=== PATIENT | male | born 1950 | race Caucasian/White ===

== ENCOUNTER 2016-10-07 10:00 | Inpatient (IN) | payer BC, MEDICARE ==
[~2016-10-07] VITALS: Ht 188 cm; Wt 93.0 kg
--- NOTE | ~2016-10-07 | PN ---
Unit #: [id number] #: [id number] Patient: SUDHAKAR RIDER [id number] [facility] [address] [place] [address] [id number] I MR#: [id number] NAME: SUDHAKAR RIDER. ROOM: P209 Age: 66 Sex: M Admission Date: 10/07/2016 : 1950 Attending Physician: Fabricio Roberts M.D. Admitting Physician: Fabricio Roberts M.D. Primary Care Physician: Generic Doctor Not In System [facility] PROGRESS NOTES DATE OF SERVICE: 10/10/2016 DISCUSSION Mr. Sudhakar Malone is a 66-year-old male, seen on 10/10/2016. The patient was admitted after suicide attempt and history of alcohol abuse. The patient is participating in program. Mood, sad and dysphoric. Flat affect. Reported that he had a good family session. The patient attended all the group, cooperative. Vital signs; stable, temperature 98.6, pulse 63, and blood pressure 162/95. REVIEW OF SYSTEMS Complete review of systems unremarkable. MENTAL STATUS EXAMINATION General appearance; the patient dressed casually. Attention span and concentration, fair. Oriented in time, place, and person. Mood and affect, sad and dysphoric. Speech, monotone. Thought process, concrete. The patient denied any thoughts of harming self or others. Recent and remote memory, poor. Insight and judgment, poor. DIAGNOSES Major depressive disorder, recurrent, severe. Alcohol use disorder, severe. ASSESSMENT AND PLAN Advised to continue with current medication and therapeutic protocol if needed, consider further adjustment of medication. Dictated by... Sheldon Man/gilma TD: 10/12/2016 03:17 JOB #: [id number] Unit #: [id number] #: [id number] Patient: SUDHAKAR RIDER [facility] PROGRESS NOTES Page 1 of 1 X Fabricio Roberts MD PROGRESS NOTE
--- NOTE | ~2016-10-07 | PN ---
Unit #: [id number] #: [id number] Patient: SUDHAKAR RIDER [id number] [facility] [address] [place] [address] [id number] MR#: [id number] NAME: SUDHAKAR RIDER. ROOM: P209 Age: 66 Sex: M Admission Date: 10/07/2016 : 1950 Attending Physician: Fabricio Roberts M.D. Admitting Physician: Fabricio Roberts M.D. Primary Care Physician: Generic Doctor Not In System [facility] PROGRESS NOTES DATE OF SERVICE 10/09/2016 DISCUSSION Sudhakar is a 66-year-old male seen on 10/09/2016. The patient interviewed, chart reviewed. Obtained information from nursing staff. The patient compliant, cooperative. Mood was labile. The patient withdrawn, isolative, flat affect. Sad, dysphoric mood. The patient denied any complaint, seclusive. The patient's Vital Signs: 97.4, 78, 18, blood pressure 117/73. Complete Review of Systems: Unremarkable. MENTAL STATUS EXAMINATION General Appearance: The patient dressed casually. Attention span, concentration: Fair. Oriented in time, place, and person. Mood and affect: Sad, dysphoric. Speech: Monotone. Thought process: [place]. The patient denied any thoughts of harming self or others but sad, depressed, seclusive. Denied any hallucination. Recent and remote memory: Poor. Insight and judgment: Poor. DIAGNOSES 1. Mood disorder not otherwise specified. 2. Alcohol use disorder, severe. ASSESSMENT/PLAN Advised to continue with current medication and therapeutic protocol. If needed, consider further adjustment of medication. Dictated by... Sheldon Man/chuck TD: 10/11/2016 10:24 JOB #: [id number] Unit #: [id number] #: [id number] Patient: SUDHAKAR RIDER PROGRESS NOTES Page 1 of 1 X Fabricio Roberts MD PROGRESS NOTE
--- NOTE | ~2016-10-07 | HP ---
Unit #: [id number] #: [id number] Patient: BRITTNI RIDER [id number] [place] [address] [id number] MR#: [id number] NAME: BRITTNI RIDER. ROOM: P209 Age: 66 Sex: M Admission Date: 10/07/2016 : 1950 Attending Physician: Fabricio Roberts M.D. Admitting Physician: Fabricio Roberts M.D. Primary Care Physician: Generic Doctor Not In System HISTORY AND PHYSICAL HISTORY OF PRESENT ILLNESS The patient is a 66-year-old male admitted to [address] [place] [address] on 10/07/2016 for suicidal ideations. PAST MEDICAL HISTORY 1. Hypertension. 2. Gout. 3. Hyperlipidemia. 4. History of an IL. PAST SURGICAL HISTORY 1. Cataract. 2. Left detached retinal repair. 3. Right foot. ALLERGIES No known drug allergies. SOCIAL HISTORY He is retired. He lives with his but they are currently . He drinks about 750 ml of vodka per day. FAMILY HISTORY Noncontributory. REVIEW OF SYSTEMS CONSTITUTIONAL: No fever or chills. HEENT: Denies any sore throat, ear pain or runny nose. CARDIOVASCULAR: Denies chest pain, irregular heart rhythm or palpitations. CHEST: Denies shortness of breath or cough. No hemoptysis. GASTROINTESTINAL: Denies nausea, vomiting, diarrhea or chronic constipation. ENDOCRINE: Denies history of increased thirst or urination. No recent significant weight loss or gain. GENITOURINARY: Denies dysuria, frequency, or hematuria. SKIN: Denies any rashes. HEMATOLOGIC: Denies history of increased bleeding or bruising. MUSCULOSKELETAL: Denies any hot, swollen joints. No generalized muscle pain. NEUROLOGIC: Denies problems with vision or speech. No frequent, severe headaches. No numbness, tingling or weakness in any extremities. Denies loss of bladder or bowel control. Unit #: [id number] #: [id number] Patient: BRITTNI RIDER CURRENT MEDICATIONS 1. Doxycycline. 2. Allopurinol. 3. Vytorin. 4. Clonidine. 5. Alfuzosin. 6. Atenolol. PHYSICAL EXAMINATION GENERAL: He is awake, alert, oriented, in no acute distress. VITAL SIGNS: Temperature 98.7, heart rate 78, respirations 18, blood pressure 127/76. HEIGHT: 6 feet 2. WEIGHT: 205 pounds. SKIN: Warm and dry without rash or lesion. HEENT: Normocephalic. TMs not viewed. Oral and nasal passages clear. Conjunctivae clear. PERRLA. EOMs intact. NECK: Supple without lymphadenopathy or thyromegaly. HEART: Regular rate and rhythm without murmur. LUNGS: Clear. ABDOMEN: Soft, nontender. : Not done. EXTREMITIES: No evidence of cyanosis, clubbing or edema. Moves all without focal deficit. NEUROLOGICAL: Grossly within normal limits. Cranial Nerves: II: Visual alcantara are intact. III, IV AND : Extraocular movements are intact. Pupils are equal, round and reactive to light. V: Facial sensation is grossly normal. VII: Facial movements and expression are normal. VIII: Auditory acuity grossly intact. IX, X: Uvula is midline. Phonation is normal. XI: Patient shrugs shoulders and turns head normally. XII: Tongue protrudes in the midline. Sensory and Motor Function: Sensory and motor sensation is grossly normal. Motor: moves all extremities well. Coordination: Gait is normal. Deep Tendon Reflexes: Intact. IMPRESSION 1. Psychiatric admission. 2. Hypertension. 3. Gout. 4. Hyperlipidemia. 5. History of IL. RECOMMENDATIONS PSYCHIATRIC: Per psychiatrist. MEDICAL: No contraindication to participate in facility's activities. MEDICAL PROGNOSIS Good. MEDICAL CONDITION Stable. Dictated by... Unit #: [id number] #: [id number] Patient: BRITTNI RIDER A.P.R.N. EF/leah TD: 10/08/2016 15:11 JOB #: [id number] HISTORY AND PHYSICAL Page 1 of 1 X LEONEL GARZON APRN HISTORY AND PHYSICAL
--- NOTE | ~2016-10-07 | PA ---
Unit #: [id number] #: [id number] Patient: SUDHAKAR RIDER [id number] [place] [address] [id number] I MR#: [id number] NAME: SUDHAKAR RIDER. ROOM: P209 Age: 66 Sex: M Admission Date: 10/07/2016 : 1950 Date of Assessment: 10/08/2016 Attending Physician: Fabricio Roberts M.D. Admitting Physician: Fabricio Roberts M.D. Primary Care Physician: Generic Doctor Not In System PSYCHIATRIC ASSESSMENT INFORMANTS The patient's reliability, fair; chart reliability, good. CHIEF COMPLAINT Depression and alcohol abuse. HISTORY OF PRESENT ILLNESS Mr. Sudhakar Malone is a 66-year-old male, presented with the above-mentioned complaint. The patient was initially admitted at [facility] after he attempted suicide by taking his medication and drank three-quarters of pint of vodka. The patient reported he has been drinking 750 mL of vodka per day from the last 20 years. The patient reported sad, depressed, anxious. Reported he was in a relationship with a girl and caused marital problems, trying to break up after that feeling guilty, sad, depressed, and attempted suicide by taking overdose of medication and alcohol. The patient sad, depressed, passive SI, hopelessness, worthlessness, anxiety, trouble sleeping. Needing inpatient admission at this time for psychiatric stabilization. PAST PSYCHIATRIC HISTORY Unknown for any history of any previous treatment. FAMILY HISTORY AND SOCIAL HISTORY The patient has a good support system from his . No known history of any abuse or any legal problems. History of alcohol abuse on paternal side of the family. MEDICAL HISTORY Remarkable for history of gout and hypertension. MEDICATION HISTORY The patient is on allopurinol, atenolol, Ventolin, clonidine. ALLERGIES No known drug allergies. SUBSTANCE ABUSE HISTORY The patient reported using alcohol 750 mL of vodka a day from the last 20 years. Denied any use of any street drugs or IV drugs. REVIEW OF SYSTEMS HEENT: Eyes, clear. Ears, nose, mouth, and throat; clear. CARDIOVASCULAR: Unremarkable. Unit #: [id number] #: [id number] Patient: SUDHAKAR RIDER RESPIRATORY: Unremarkable. GI: Unremarkable. : Unremarkable. SKIN: Unremarkable. LYMPH NODE: Unremarkable. NEUROLOGIC: Unremarkable. ENDOCRINE: Unremarkable. HEMATOLOGIC: Unremarkable. ALLERGIC/IMMUNOLOGIC: Unremarkable. MUSCULOSKELETAL: Muscle strength and tone, no atrophy or abnormal movement. Gait normal. MENTAL STATUS EXAMINATION CONSTITUTIONAL: Measurement of vital signs; temperature 98.7, pulse 78, respirations 18, blood pressure 126/76. Height 6 feet 2 inches, weight 205 pounds. GENERAL APPEARANCE: The patient dressed casually. The patient did not show any facial deformity. MUSCULOSKELETAL: Please see above. PSYCHIATRIC EXAMINATION Description of speech; regular rate, normal volume, normal articulation, coherent. Description of thought process, goal directed. Description of association, intact. Description of abnormal psychotic thinking; the patient denied any hallucination or delusions, but mood lability, sad, depressed, alcohol abuse. Description of the patient's judgment; concerning everyday activity, poor. Social situation, poor. Concerning psychiatric condition, poor. Complete mental status examination; oriented in time, place, and person. Recent and remote memory, fair. Attention span and concentration, fair. Language, able to name object and repeat phrases. Fund of knowledge, aware of current event and passive vocabulary intact. Mood and affect, sad and dysphoric. Insight and judgment, fair to poor. ASSETS AND LIABILITIES Assets; the patient articulate, able to take care of his ADL. Liability; history of depression, alcohol abuse. ADMITTING DIAGNOSES Psychiatric: Major depressive disorder, recurrent, severe, F33.2; alcohol use disorder, severe, F10.20. Secondary diagnosis: Deferred. Medical diagnoses: Hypertension and gout. Stressors: Psychosocial stressor. PSYCHIATRIC PLAN AND TREATMENT GOAL 1. Advised to admit the patient on the inpatient unit. Provide safe, supportive, and structured environment. 2. Ordered labs; CBC, CMP, UA, and UDS. 3. Obtained information from the [facility] and [facility]. 4. The patient to start with detox protocol, detox monitoring. Attend all the programming with group therapy, individual therapy, chemical dependency group. Advised to continue with home medication and if needed, consider further adjustment of medication. Advised Celexa 20 mg daily for Unit #: [id number] #: [id number] Patient: RIDERSUDHAKAR P depression, and Desyrel 50 mg at bedtime for sleep. Treatment goal to attain euthymic mood, gain insight into his problem, and learn coping skills. DISCHARGE PLAN Plan to stabilize the patient and consider followup in outpatient program. ESTIMATED LENGTH OF STAY 2 weeks. Dictated by... Sheldon Man/gilma TD: 10/09/2016 06:26 JOB #: [id number] PSYCHIATRIC ASSESSMENT Page 1 of 1 X Fabricio Roberts MD X PSYCHIATRIC ASSESSMENT
--- NOTE | ~2016-10-07 | DS ---
Unit #: [id number] #: [id number] Patient: BRITTNI RIDER [id number] [facility] [address] [place] [address] [id number] MR#: [id number] NAME: BRITTNI RIDER. ROOM: P209 Age: 66 Sex: M Admission Date: 10/07/2016 : 1950 Discharge Date: 10/11/2016 Attending Physician: Fabricio Roberts M.D. Primary Care Physician: Generic Doctor Not In System DISCHARGE SUMMARY REASON FOR ADMISSION Suicide attempt, alcohol abuse. DIAGNOSTIC STUDIES LABORATORY DATA: Unremarkable. HOSPITAL COURSE The patient was admitted to inpatient unit on October 07 and discharged on 10/11/2016. The patient was treated on the inpatient unit with group therapy, individual therapy, medication management, and detox protocol. The patient responded well with the above modalities of treatment, showed improvement. Subsequently the patient was discharged with a plan to follow up in outpatient program. DISCHARGE MEDICATIONS 1. Celexa 20 mg daily for depression. 2. Desyrel 50 mg at bedtime for sleep. 3. The patient to continue with his other medication from primary care physician, Zyloprim, Lipitor, Zetia, Uroxatral, Catapres. DISCHARGE DIAGNOSES PSYCHIATRIC: Major depressive disorder, recurrent, severe, F33.2 Alcohol use disorder, severe, F10.20. SECONDARY: Deferred. MEDICAL: Hypertension. Gout. Psychosocial stressor. FOLLOWUP CARE The patient to follow up in outpatient clinic as per secondary social studies teacher. CONDITION AT DISCHARGE The patient pleasant, cooperative. Denied any psychotic symptom or any suicidal ideation. PROGNOSIS Guarded. DIET AND ACTIVITY As tolerated. Dictated by... Unit #: [id number] #: [id number] Patient: BRITTNI RIDER Sheldon ManC/bzg TD: 10/12/2016 11:23 JOB #: [id number] DISCHARGE SUMMARY Page 1 of 1 X Fabricio Roberts MD X DISCHARGE SUMMARY
[2016-10-08 12:28] LABS: URINE APPEARANCE TURBID; URINE BLOOD NEG (NEG); URINE COLOR ORANGE; URINE GLUCOSE NEG (NEG); URINE KETONE TRACE (NEG); URINE LEUKOCYTE ESTERASE TRACE (NEG); URINE NITRATE POS (NEG); URINE PROTEIN TRACE (NEG); URINE SPECIFIC GRAVITY 1.026 (1.003-1.035); URINE UROBILINOGEN 0.2 MG/DL (NEG)
[2016-10-08 12:31] LABS: BASOPHIL% 0.6 % (0-2.5); EOSINOPHIL% 0.6 % (0.0-7.0); HEMOGLOBIN 14.4 gm/dL (13.0-16.0); LYMPHOCYTE# 0.6 X10e3 (1.0-3.5); LYMPHOCYTE% 11.7 % (17.0-45.0); MEAN CELL VOLUME 99.8 FL (83-96); MEAN CORPUSCULAR HEMOGLOBIN 34.2 PG (28-34); MEAN CORPUSCULAR HGB CONC 34.3 g/dL (30-36); MEAN PLATELET VOLUME 9.1 FL (6.5-11.5); MONOCYTE# 0.5 X10e3 (0-1.0); MONOCYTE% 8.7 % (3.0-12.0); NEUTROPHIL# 4.4 X10e3 (1.5-7.1); NEUTROPHIL% 78.4 % (40-75); PLATELET COUNT 126 X10e3 (140-420); RED BLOOD COUNT 4.21 X10e (3.90-5.60); RED CELL DISTRIBUTION WIDTH 14.1 % (11.0-15.5); WHITE BLOOD COUNT 5.6 X10e3 (4.0-10.5)
[2016-10-08 12:34] LABS: URINE BACTERIA AUWI NEG (NEGATIVE); URINE SQUAMOUS EPITHELIAL CELL OCC /[HPF]
[2016-10-08 12:37] LABS: DIFF IND NO
[2016-10-08 12:51] LABS: CALCIUM SERUM 8.7 mg/dL (8.4-10.2); CREATININE SERUM 0.8 mg/dL (0.6-1.4); GLOM FILT RATE Estimated 93.1 mL/min (>60); POTASSIUM 3.9 mmol/L (3.5-5.1); PROTEIN TOTAL SERUM 5.9 g/dL (6.0-8.3)
[2016-10-08 13:01] LABS: URINE BILIRUBIN NEG (NEG)
[2016-10-08 13:23] LABS: AMPHETAMINE NEG (NEG); BARBITURATES NEG (NEG); BENZODIAZEPINES NEG (NEG); COCAINE NEG (NEG); MARIJUANA NEG (NEG); OPIATES NEG (NEG); TRICYCLIC ANTIDEPRESSANTS NEG (NEG); U METHADONE NEG (NEG)
== END 2016-10-11 11:02 | DRG 885 ==
LOC: P2S 16:43
PROVIDERS: Psychiatry & Neurology Psychiatry
PROC: HZ2ZZZZ Detoxification Services for Substance Abuse Treatment (ICD-10-PCS; principal; 2016-10-07)
DX: F33.2 Major depressive disorder, recurrent severe without psychotic features (principal); R45.851 Suicidal ideations; I10 Essential (primary) hypertension; F10.20 Alcohol dependence, uncomplicated; M10.9 Gout, unspecified; I25.2 Old myocardial infarction; E78.5 Hyperlipidemia, unspecified
CPT/HCPCS: 80053; 80307; 81003; 85025; 86592